=== PATIENT | female | born 1975 | race African-American/Black ===

== ENCOUNTER 2018-03-27 16:39 | Emergency (ER) | payer OTHER ==
--- NOTE | 2018-03-27 17:52 | ED GENERAL ADULT ---
History of Present Illness General Chief Complaint: General Adult Stated Complaint: SIB PCP FOR HIGH BP Source: patient Exam Limitations: no limitations Vital Signs & Intake/Output Vital Signs & Intake/Output Vital Signs Date Time Temp Pulse Resp B/P B/P Pulse O2 O2 Flow FiO2 Mean Ox Delivery Rate 03/27 2016 66 170/106 03/27 1909 198/106 03/27 1831 85 185/113 03/27 1830 97.1 17 185/113 03/27 1830 85 185/113 03/27 1728 97.1 85 17 185/113 97 Room Air Allergies Coded Allergies: No Known Allergies (03/27/18) Triage Note: PT SENT TO ED BY PCP FOR EVAL OF ELEVATED BP 196/120 IN OFFICE. PT STATES SHE HAS BEEN ANXIOUS OVER HER CHILD STARTING KINDERGARTEN AND MISSED HER AM NORVASC AND METOPROLOL. DENIES HEADACHE OR VISUAL CHANGES. Triage Nurses Notes Reviewed? yes Onset: Abrupt : No Patient currently breastfeeds: No HPI: 43-year-old female comes into the emergency room for further evaluation of elevated blood pressure. Patient reports that she was at her primary care doctor for a follow-up appointment and she was told that her blood pressure was high. She was not there for a follow-up on her blood pressure but her blood pressure was noted to be very elevated. She admits that she did not take her medications today because she was stressed out about her child going to kindergarten. She has no symptoms. She denies any headache or vision loss chest pain shortness of breath lightheaded dizziness and slurring of words confusion. She denies any symptoms at all. She comes in for further evaluation because her doctor told her to. (Raji Kohli) Past History Travel History Traveled to Thu past 21 day No Medical History Any Pertinent Medical History? see below for history Cardiovascular: hypertension Surgical History Surgical History: non-contributory Psychosocial History What is your primary language Gren[place] Tobacco Use: Never used Family History Hx Contributory? No (Raji Kohli) Review of Systems Review of Systems Constitutional: Reports: no symptoms. EENTM: Reports: no symptoms. Respiratory: Reports: no symptoms. Cardiovascular: Reports: no symptoms. GI: Reports: no symptoms. Genitourinary: Reports: no symptoms. Musculoskeletal: Reports: no symptoms. Skin: Reports: no symptoms. Neurological/Psychological: Reports: no symptoms. Hematologic/Endocrine: Reports: no symptoms. Immunologic/Allergic: Reports: no symptoms. All Other Systems: Reviewed and Negative (Raji Kohli) Physical Exam Physical Exam General Appearance: well developed/nourished, no apparent distress, alert, awake Head: atraumatic, normal appearance Eyes: Bilateral: normal appearance, EOMI. Ears, Nose, Throat: normal ENT inspection, hearing grossly normal Neck: normal inspection Respiratory: normal breath sounds, no respiratory distress Cardiovascular: regular rate/rhythm Gastrointestinal: soft Back: normal inspection Extremities: normal inspection Neurologic/Psych: awake, alert, oriented x 3, normal gait Skin: intact, normal color Core Measures ACS in differential dx? No CVA/TIA Diagnosis: No Sepsis Present: No Sepsis Focused Exam Completed? No (Raji Kohli) Progress Differential Diagnoses I considered the following diagnoses in my evaluation of the patient: Hypertension, hypertensive urgency, Plan of Care: Orders Procedure Date/time Status URINALYSIS 03/27 1731 Complete EKG 03/27 163 Active Current Medications Sig/Dav Start time Last Medication Dose Stop Time Status Admin Labetalol HCl 100 MG ONCE ONE 03/27 2045 CAN (Trandate) 03/27 2046 Labetalol HCl 10 MG ONCE ONE 03/27 1945 CAN (Trandate) 03/27 1946 Laboratory Tests 03/27/181944: Troponin I Cancelled, CBC w Diff Cancelled, WBC Cancelled, RBC Cancelled, Hgb Cancelled, Hct Cancelled, MCV Cancelled, MCH Cancelled, MCHC Cancelled, RDW Cancelled, Plt Count Cancelled, MPV Cancelled 03/27/18 1813: Urine Color YEL, Urine Clarity CLEAR, Urine pH 6.0, Ur Specific [place] 1.025, Urine Protein NEG, Urine Ketones NEG, Urine Nitrite NEG, Urine Bilirubin NEG, Urine Urobilinogen 1.0, Ur Leukocyte Esterase NEG, Ur Microscopic SEDIMENT EXAMINED, Urine RBC 1-3, Urine WBC 3-5 H, Ur Epithelial Cells MOD H, Urine Crystals 1+ CA OX H, Urine Bacteria MOD H, Urine Mucus FEW, Urine Hemoglobin MOD H, Urine Glucose NEG 03/27/18 173: Troponin I Cancelled, CBC w Diff Cancelled, WBC Cancelled, RBC Cancelled, Hgb Cancelled, Hct Cancelled, MCV Cancelled, MCH Cancelled, MCHC Cancelled, RDW Cancelled, Plt Count Cancelled, MPV Cancelled Initial ED EKG: normal sinus rhythm, rate (64) (Raji Kohli) Departure Departure Disposition: HOME OR SELF CARE Condition: Stable Clinical Impression Primary Impression: Chronic hypertension Referrals: Unknown (PCP/Family) Additional Instructions: Follow-up with your primary care doctor tomorrow for blood pressure recheck. Return if any concerns worsening symptoms. Please go over all results of today's visit with your primary care doctor. Contact your primary care doctor to let them know you were here in the emergency room. There may be nonspecific findings which may not be related to your visit today here in the emergency room but may require further evaluation and chronic monitoring by your primary care doctor. If you had a laceration today the chance of foreign body always remains. You should follow-up with your primary care doctor for recheck in 3-5 days for a wound check. If you had an x-ray done there is a chance that a fracture could have been missed on initial read and you should follow-up with your primary care doctor for repeat x-rays if symptoms persist. If your blood pressure was elevated here in the emergency room please have rechecked by [facility] primary care doctor within the next 48. If you were prescribed a narcotic here in the emergency room or any type of controlled substances you're not allowed to drive while taking this medication or operate any type of heavy machinery. Narcotics can make you feel lightheaded dizziness nausea and can cause constipation. You may need to pick up and delivery driver a stool softener. Thank you for choosing [facility] emergency room. Please return to the emergency room immediately if you have any other concerns worsening of symptoms. Departure Forms: Customer Survey General Discharge Information Comments 03/27/2018 11:11:03 PM Patient's repeat blood pressure improved. Patient clinically looks well. She is asymptomatic. She needs to follow-up for repeat blood pressure check tomorrow. Patient was very adamant initially about trying to avoid blood work if possible because she is terrified of needles. Due to the fact that she was asymptomatic, EKG and a urine to assess for protein was a reasonable approach. Her blood pressure improved enough where she can be discharged and follow up with her PCP. She understands and agrees with plan of care. (Raji Kohli) PA/ROLLER STAINER Co-Sign Statement Statement: ED Attending supervision documentation- [] I saw and evaluated the patient. I have also reviewed all the pertinent lab results and diagnostic results. I agree with the findings and the plan of care as documented in the PA's/ROLLER STAINER's documentation. [x] I have reviewed the ED Record and agree with the PA's/ROLLER STAINER's documentation. [] Additions or exceptions (if any) to the PAs/ROLLER STAINER's note and plan are summarized below: [] (Sara DE,Homer Alvarado) Critical Care Note Critical Care Note Critical Care Time: non-applicable (Raji Kohli)
[2018-03-27 20:16] VITALS: BP 170/106
== END 2018-03-27 20:49 ==
LOC: ERH 16:39 → EDBD 16:39 → ERH 18:18
DX: I10 Essential (primary) hypertension (principal)
CPT/HCPCS: 81001; 93005; 93010